=== PATIENT | male | born 1950 | race Caucasian/White ===

== ENCOUNTER 2022-10-24 07:36 | Inpatient (IN) ==
--- NOTE | 2022-09-17 14:57 | PAT Medication Instructions ---
Medication Instructions Date of Service September 17, 2022 Home Medications allopurinol 300 mg tablet 300 mg PO DAILY losartan 50 mg tablet 50 mg PO DAILY metformin 500 mg tablet 1,000 mg PO QAM DO NOT take the morning of surgery losartan 50 mg tablet 50 mg PO DAILY metformin 500 mg tablet 1,000 mg PO QAM Take morning of surgery With a small sip of water, OTHERWISE NOTHING TO EAT OR DRINK AFTER MIDNIGHT: allopurinol 300 mg tablet 300 mg PO DAILY Other Notes If you have any questions please call us at [phone] or [phone] or [phone] or [phone]
--- NOTE | 2022-09-19 11:58 | Anesthesiology Consultation ---
Date of Service September 19, 2022 Assessment & Plan (1) Encounter for pre-operative examination: - COVID screening: Per assessment on 09/19: No known COVID-19 positive contacts or current COVID-19 related symptoms. Travel screen negative. Patient vaccinated. At surgeon discretion if preop Covid testing being done. - Check BSG AM DOS Chart Review Chart Review: Acceptable Risk for Surgery and Patient seen in Pre Admission Testing Teaching & Discussion Pre-Anesthesia Teaching/Discussion Notes: Instructed NPO after midnight before surgery,except medications with 15 cc of water. Medication instructions provided according to the PAT guidelines. History Surgery Operation Date: 10/24/22 10:05 Proposed Procedures p L3-L5 Decompression and Fusion, spinal Cord Monitoring - Clyde Torres, Height/Weight Height: 6 ft Weight: 104.7 kg Allergies Allergy/AdvReac Type Severity Reaction Status Date / Time cinnamon Allergy Severe Anaphylaxis Verified 09/17/22 13:18 pumpkin Allergy Severe Anaphylaxis Verified 09/17/22 13:18 Penicillins Allergy Intermediate Hives (as Verified 09/18/22 11:50 child) Medications Home Medications Medication Instructions Recorded Confirmed Last Taken allopurinol 300 mg tablet 300 mg PO DAILY 09/17/22 09/17/22 Unknown losartan 50 mg tablet 50 mg PO DAILY 09/17/22 09/17/22 Unknown metformin 500 mg tablet 1,000 mg PO QAM 09/17/22 09/17/22 Unknown Past Medical History Medical History Arthritis Diabetes mellitus, type 2 Hx of gout Hypertension Sleep apnea No device/non-compliant Spinal stenosis Exercise / Class Metabolic Activity III < 4 Walking/Shop/Light housework Past Family History Family History Other No family history of adverse response to anesthesia Past Surgical History Surgical History H/O metal removed from eye History of colonoscopy History of removal of skin mole BENIGN (FROM BACK) History of tooth extraction Past Anesthesia History No Hx of Anesthesia Complications and No Family Hx of Anesthesia Complications History of PONV No Hx of PONV and No Hx of Motion Sickness Social History tobacco type: cigarettes and cigars Do You Dip or Chew Tobacco: No (Quit years ago) Smoking End Date: Quit cigarettes years ago, occasional social cigar Hx Alcohol Use: Yes Alcohol type: beer, wine and hard liquor alcohol intake frequency: a few times a month substance use type: does not use Review of Systems Patient denies chest pain, shortness of breath, fever, chills, cough, wheezing, palpitations. Physical Exam Vital Signs VITALS BP 151/76 P 62 TEMP 98.8 SP02 97%RA RESP 18 PHYSICAL Full cervical extension range of motion. Full TMJ range of motion. TMD 3 finger breaths Mallampati Score 3 Dentition: full upper/lower dentures Lungs: clear throughout to auscultation Cardiac: regular rate and rhythm, no murmurs noted Spine: normal Carotid arteries: negative bruit Extremities: no edema Lab Results Anesthesia Preop Results Results Anesthesia Widget: WBC 5.09 K/ul (4.8-10.8) 09/19/22 Hgb 12.2 g/dl (14.0-18.0) L 09/19/22 Hct 36.0 % (40.1-51.0) L 09/19/22 Plt 152 K/uL (130-400) 09/19/22 Na 137 mmol/L (136-145) 09/19/22 K 3.8 mmol/L (3.5-5.1) 09/19/22 Cl 103 mmol/L (98-107) 09/19/22 CO2 29 mmol/L (21-32) 09/19/22 BUN 20 mg/dl (6-23) 09/19/22 Creat 0.71 mg/dl (0.6-1.4) 09/19/22 Glucose Level 151 mg/dl (70-99(Fasting)) H 09/19/22 PT 10.5 Seconds (9.0-12.0) 09/19/22 PTT 27.5 Seconds (21.0-31.0) 09/19/22 INR 1.0 (0.9-1.1) 09/19/22 HA1c 6.2 % (4.5-5.6) H 09/19/22 Urine Color Yellow 09/19/22 Urine Appearance Clear (Clear) 09/19/22 Urine pH 6.5 (4.5-7.5) 09/19/22 Urine Specific Larue 1.013 (1.000-1.030) 09/19/22 Urine Protein Negative (Negative) 09/19/22 Urine Glucose (UA) Negative (Negative) 09/19/22 Urine Ketones Negative (Negative) 09/19/22 Urine Blood Negative (Negative) 09/19/22 Urine Nitrite Negative (Negative) 09/19/22 Urine Bilirubin Negative (Negative) 09/19/22 Urine Urobilinogen Negative (Negative) 09/19/22 Urine Leukocyte Esterase Negative (Negative) 09/19/22 Blood Type A Positive 09/19/22 Antibody Screen NEGATIVE 09/19/22 Testing Electrocardiogram Date: 09/19/22 SB at 55bpm. Chest X-Ray Date: 09/19/22 Findings: + NAD COVID-19 Risk Screen Screening Information COVID-19 Screen Date: 09/19/22 Exposure 21 Days Family/Household +COVID Last 21 Days: No Exposure 10 Days Any COVID Exposure Last 10 Days: No Symptoms Last 10 Days Experienced COVID Sx Last 10 Days: No + COVID 0-90 Days COVID + in Last 0-90 Days: No
[~2022-10-24 07:36] MED LIST: ACETAMINOPHEN 500 MG TAB PO SCH; CeleBREX 200 MG CAP PO SCH; GABAPENTIN 300 MG CAP PO SCH; LR 15ML/HR IV SCH; ceFAZolin 2000MG 2,000 MG/15 ML SYR IV SCH
[2022-10-24] MEDS ORDERED: NALOXONE HCL 0.4 MG/1 ML VIAL/CARP IV PRN ×2 (09:19→14:47)
[2022-10-24] MEDS ORDERED: ONDANSETRON INJ 2 MG/ML 2 ML VIAL IV PRN ×2 (09:19→14:47)
[2022-10-24] MEDS ORDERED: PROMETHAZINE HCL 12.5 MG in SODIUM CHLORIDE 0.9% 50 ML IV PRN ×2 (09:19→14:47)
[2022-10-24] MEDS ORDERED: ePHEDrine sulfate 50 MG/ML AMP IV PRN (09:19)
[2022-10-24] MEDS ORDERED: HYDROmorphone INJ 1 MG/ML SYRINGE IV PRN ×2 (09:19→14:47)
[2022-10-24] MEDS ORDERED: LABETALOL HCL IV 5 MG/ML 20ML IV PRN (09:19)
[2022-10-24] MEDS ORDERED: ATROPINE SULFATE 0.1 MG/ML 10ML SYR IV PRN (09:19)
[2022-10-24] MEDS ORDERED: FLUMAZENIL 0.1 MG/1 ML 10 ML VIAL IV PRN (09:19)
--- NOTE | 2022-10-24 09:32 | History & Physical Bridge Note ---
Date of Service October 24, 2022 History & Physical Bridge Note I have examined the patient, reviewed the History & Physical and in the interval since the performance of the History & Physical I have noted the following changes of clinical significance: no changes noted
--- NOTE | 2022-10-24 09:34 | History & Physical Report ---
Date of Service October 24, 2022 Assessment & Plan (1) Neurogenic claudication due to lumbar spinal stenosis: Plan: L L3-L5 decompression and fusion History of Present Illness Chief Complaint: Back and bilateral leg pain Primary Care Provider: DARVIN Patiño This is a 72-year-old male who presents with chronic persistent back and bilateral leg pain. Failing extensive course of nonoperative care is here for surgical intervention. Allergies Allergy/AdvReac Type Severity Reaction Status Date / Time cinnamon Allergy Severe Anaphylaxis Verified 10/24/22 08:03 pumpkin Allergy Severe Anaphylaxis Verified 10/24/22 08:03 Penicillins Allergy Intermediate Hives (as Verified 10/24/22 08:03 child) Home Medications Medication Instructions Recorded Confirmed Type allopurinol 300 mg tablet 300 mg PO DAILY 09/17/22 10/24/22 History losartan 50 mg tablet 50 mg PO DAILY 09/17/22 10/24/22 History metformin 500 mg tablet 1,000 mg PO QAM 09/17/22 10/24/22 History Past Med/Surg History Medical History Arthritis Diabetes mellitus, type 2 Hx of gout Hypertension Sleep apnea No device/non-compliant Spinal stenosis Surgical History H/O metal removed from eye History of colonoscopy History of removal of skin mole BENIGN (FROM BACK) History of tooth extraction Family History Other No family history of adverse response to anesthesia Social History Smoking Status: Former smoker Cigarettes Per Day: WILL STILL SMOKE A CIGAR WHEN DRINKING WITH FRIENDS; Smoking End Date: Quit cigarettes years ago, occasional social cigar; Second Hand Exposure: Yes ( A CHILD); Do You Dip or Chew Tobacco: No (Quit years ago); Hx Alcohol Use: Yes Alcohol type: beer, wine and hard liquor Preferred Language: Bolivian Project Control Analyst Required: No Beliefs That Will Affect Care: Anglican Anglican Beliefs: JEHOVAH'S WITNESS Current Living Situation: Spouse Feels Safe at Home: Yes Safety Concerns: Feels Safe At This Time Assistive Devices: Cane, Denture - Upper, Denture - Lower and Glasses Assistive Devices Comment: READING GLASSES Physical Exam Physical Exam: Patient is alert and oriented Heart regular rhythm Lungs clear Results & Data Results & Data ([place]) Vital Signs (Past 12 Hours) Vital Signs Temp Pulse Resp BP Pulse Ox O2 Del Method 10/24/22 08:13 37.1 C 56 L 20 199/96 H 98 Room Air
[2022-10-24] MEDS ORDERED: BUPIVACAINE/EPINEPHRINE 0.25% 1:200,000 30 ML VIAL ONE ×2 (09:43→10:05)
[2022-10-24] MEDS ORDERED: ceFAZolin 330 MG/ML 1 GM VIAL ONE (09:43)
[2022-10-24] MEDS ORDERED: CLINDAMYCIN/D5W 900 MG/50 ML BAG IV ONE (09:44)
[2022-10-24] MEDS ORDERED: CLINDAMYCIN 900 MG/D5W 50 ML BAG IV ONE (09:49)
[2022-10-24] MEDS ORDERED: ONDANSETRON INJ 2 MG/ML 2 ML VIAL ONE (09:52)
[2022-10-24] MEDS ORDERED: NEOSTIGMINE METHYLSULFATE 1 MG/ML 10ML VIAL ONE (09:52)
[2022-10-24] MEDS ORDERED: PROPOFOL IV EMULSION 10 MG/ML 20 ML VIAL IV ONE (09:52)
[2022-10-24] MEDS ORDERED: GLYCOPYRROLATE 0.2 MG/ML VIAL ONE (09:52)
[2022-10-24] MEDS ORDERED: fentaNYL citrate 100 MCG/2 ML VIAL ONE (09:52)
[2022-10-24] MEDS ORDERED: ROCURONIUM BROMIDE 10 MG/ML 5 ML VIAL IV ONE ×4 (09:52→11:51)
[2022-10-24] MEDS ORDERED: HYDROmorphone INJ 2 MG/ML SYR/VIAL ONE (09:53)
[2022-10-24] MEDS ORDERED: MIDAZOLAM HCL 1 MG/ML 2ML VIAL ONE (09:53)
[2022-10-24] MEDS ORDERED: FLOSEAL HEMOSTATIC MATRIX 10ML TOP ONE (10:53)
[2022-10-24] MEDS ORDERED: ALBUMIN HUMAN 5% 12.5 GM/250 ML VIAL IV ONE (11:59)
--- NOTE | 2022-10-24 12:09 | Operative Report ---
Post Operative Report Pre & Post Diagnosis Operation Date: 10/24/22 09:35 Pre-Op Diagnosis: Spinal Stenosis, Lumbar Region with Neurogenic Claudication Post-Op Diagnosis: Spinal Stenosis, Lumbar Region with Neurogenic Claudication I identified the patient and participated in the time-out.: Yes Procedure Operation Date: 10/24/22 09:35 Actual Procedures #1 lumbar decompression bilateral medial facetectomies and foraminotomies L2-L3, L3-L4 and L4-L5. #2 posterior spinal fusion L3-L4 L4-L5. #3 placement posterior instrumentation L3-L5. #4 interbody fusion L3-L4 L4-L5. #5 placement of Spira 15 x 26 mm cage at L3-L4 and L4-L5. #6 placement locally harvested morselized autograft in the posterior gutters. #7 placement of I factor combined with V test interbody space and posterior lateral gutters. Surgeon Clyde Torres, DO Psych Tech Asha Mari Estimated Blood Loss 700 Findings See Below The patient is 6 foot tall weighing over 104 kg with a BMI in excess of 31. Patient's body habitus combined with an EBL of over 750 cc created significant technical difficulty and at least 50% increased operative time. Specimens None Indications This is a 72-year-old male who presents above-mentioned diagnosis after failed course of nonoperative care is here for surgical invention. Description of Procedure Patient was met with identified informed consent obtained. Patient was then taken to the operative suite underwent a patient placed in a prone position on the Bruno table top Ranulfo frame. All bony prominences well-padded eyes inspected to ensure no external pressure placed upon them. This point the lumbar spine was prepped and draped in normal sterile fashion. Sharp dissection with the assistance of Bovie cautery was performed down to and exposing the lamina and transverse processes of L3-L4-L5 bilaterally. From caudal to cephalad fashion complete laminectomy of L4 L3 impression laminectomy L2 was performed including bilateral medial facetectomies and foraminotomies addressing severe spinal stenosis. Pedicle screws were then placed in L3 L4-5 bilaterally with assistance of fluoroscopy and the properly sized patricia placed. By way of a transforaminal approach on the left at L4-L5 a discectomy was performed endplates curetted to subcortically bone and a 15 x 26 mm spiral cage with I factor tapped in position. Then proceeded to L3-L4 and again by way of a transfemoral approach and left pleat discectomy performed endplates curetted to subcortical bleeding bone and a 15 x 26 mm spiral cage filled with I factor tapped in position. Rods were then locked in final position bilaterally. The transverse processes of L3-L4-L5 burred to subcortically bone. I factor combined with V toss and locally harvested morselized autograft was placed in the posterior gutters. 15 round DEEDEE drain inserted. The incision was then closed with 1 Vicryl the fascia 2-0 Vicryl subcutaneously and 4 Monocryl for final skin closure. Steri-Strip sterile dressings placed. Patient waken taken to PACU in stable condition. Please note spinal cord monitoring was utilized at the procedure no changes noted. Lastly Asha Mari was present at the entire surgeon while the patient positioning complex portions of the surgery and final skin closure. I attest to the content of the Intraoperative Record and any orders documented therein. Any exceptions are noted below.
[2022-10-24 12:22] LABS: iSTAT Creatinine 0.7 mg/dl (0.6-1.3); iSTAT Hemoglobin 10.5 g/dl (14.0-18.0); iSTAT Ionized Calcium 1.19 mmol/l (1.12-1.32); iSTAT Potassium 4.8 mmol/L (3.3-5.0)
[2022-10-24] MEDS: fentaNYL citrate 100 MCG/2 ML VIAL IV PRN ×4 (12:34→13:50)
--- NOTE | 2022-10-24 12:44 | Fluoroscopy Report ---
INTRAOPERATIVE RADIOGRAPHS CLINICAL HISTORY: L3-L5 spinal fusion. Fluoroscopy time: 27 seconds. FINDINGS: 2 spot fluoroscopic views of the lumbar spine are presented. There has been discectomy at L 3-L4 and L4-L5 with laminectomy and posterior fusion at L3-L5. Interpedicular screws are in place. Th e orthopedic hardware appears intact. IMPRESSION: Intraoperative images from lumbar spinal fusion surgery as above. Electronically signed by: Lyle Gamez M.D. 10/24/2022 12:43 PM
--- NOTE | 2022-10-24 13:32 | Anesthesiology Progress Note ---
Date of Service October 24, 2022 Anesthesia Post Procedure Vital Signs Vital Signs: Temp Pulse Pulse Resp BP Pulse Ox O2 Del Method 10/24/22 13:25 37 C 61 12 130/71 92 Oxymask 10/24/22 13:15 37 C 61 12 130/71 92 Oxymask 10/24/22 13:05 73 13 133/69 97 Oxymask 10/24/22 12:55 64 12 132/64 97 Oxymask 10/24/22 12:45 66 13 133/73 93 Oxymask 10/24/22 12:35 72 11 L 133/73 98 Oxymask 10/24/22 12:25 36.5 C 85 11 L 153/74 H 99 Oxymask 10/24/22 08:13 37.1 C 56 L 20 199/96 H 98 Room Air O2 Flow Rate 10/24/22 13:25 2 10/24/22 13:15 2 10/24/22 13:05 2 10/24/22 12:55 5 10/24/22 12:45 5 10/24/22 12:35 7 10/24/22 12:25 7 10/24/22 08:13 Pain Intensity Right Lower Back: Pain Intensity: 5 Transfer of Care Handoff Completed per policy Notes Mental Status: alert / awake / arousable Patient Amnestic to Procedure: Yes Nausea / Vomiting: adequately controlled Pain: adequately controlled Airway Patency, RR, SpO2: stable & adequate BP & HR: stable & adequate Hydration State: stable & adequate Anesthetic Complications: no major complications apparent
[2022-10-24 13:33] LABS: Hematocrit (blood only) 32.4 % (40.1-51.0); Hemoglobin 10.9 g/dl (14.0-18.0)
[2022-10-24] MEDS ORDERED: ACETAMINOPHEN 1,000 MG/100 ML VIAL IV PRN (14:47)
[2022-10-24] MEDS ORDERED: DO NOT ADMINISTER PNEUMOCOCCAL VACCINE PRN (14:47)
[2022-10-24] MEDS ORDERED: LORazepam 2 MG/1 ML VIAL IV PRN (14:47)
[2022-10-24] MEDS ORDERED: hydrOXYzine HCl 25 MG TAB PO PRN (14:47)
[2022-10-24] MEDS ORDERED: LORazepam 0.5 MG TAB PO PRN (14:47)
[2022-10-24] MEDS ORDERED: DO NOT ADMINISTER FLU VACCINE PRN (14:47)
[2022-10-24] MEDS ORDERED: PHARMACY GLYCEMIC MGMT CONSULT PRN (14:47)
[2022-10-24] MEDS ORDERED: METOCLOPRAMIDE HCL INJ 5 MG/ML 2 ML VIAL IV PRN (14:47)
[2022-10-24] MEDS ORDERED: ONDANSETRON 4 MG OD TAB PO PRN (14:47)
[2022-10-24] MEDS ORDERED: MAGNESIUM HYDROXIDE SUSP 30 ML UDC PO PRN (14:47)
[2022-10-24] MEDS ORDERED: SOD PHOSPHATE/SOD BIPHOSPHATE ENEMA 132 ML BTL PR PRN (14:47)
[2022-10-24] MEDS ORDERED: ALUMINUM/MAGNESIUM SUSP 30 ML UDC PO PRN (14:47)
[2022-10-24] MEDS ORDERED: traMADol HCL 50 MG TABLET PO PRN (14:47)
[2022-10-24] MEDS ORDERED: bisacodyL 10 MG SUPP PR PRN (14:47)
[2022-10-24] MEDS ORDERED: FAMOTIDINE 20 MG TAB PO PRN (14:47)
[2022-10-24] MEDS ORDERED: diphenhydrAMINE Capsule 25 MG CAP PO PRN (14:47)
[2022-10-24] MEDS ORDERED: CARBOHYDRATES FOR HYPOGLYCEMIA PO PRN (15:15)
[2022-10-24] MEDS ORDERED: DEXTROSE 50% 50 ML SYRINGE IV PRN (15:15)
[2022-10-24] MEDS ORDERED: GLUCOSE 10 TAB/TUBE PO PRN (15:15)
[2022-10-24] MEDS ORDERED: GLUCAGON FOR INJ 1 MG VIAL IM PRN (15:15)
[2022-10-24] MEDS ORDERED: GLUCOSE 40% GEL 15 GM TUBE PO PRN (15:15)
[2022-10-24] MEDS: SODIUM CHLORIDE 0.9% 1000ML 1,000 ML IV SCH ×2 (15:33→21:52)
--- NOTE | 2022-10-24 17:25 | Consultation ---
Date of Consultation October 24, 2022 Assessment & Plan (1) Neurogenic claudication due to lumbar spinal stenosis: (2) Status post lumbar surgery: Post op day# 0 S/P L2-L5 decompression and fusion by Dr Torres EBErnie#[id number] pain management per ortho wound management per ortho PT/OT as appropriate DVT prophylaxis per ortho incentive spirometry monitor H&H for acute blood loss anemia; Pre-op Hgb: 12, today postop Hgb: 10.9 (3) Diabetes mellitus, type 2: A1c: 6.2 on 09/19/2022 Hold home metformin NovoLog sliding scale per protocol (4) Hypertension: Stable Continue losartan (5) Hx of gout: Continue allopurinol (6) Sleep apnea: Does not use CPAP at home DVT Prophylaxis SCDS Disposition per primary service Follows with Trino BOSTON in [place], [place] for routine care Pt was seen and care coordinated with Dr Parisi. See addendum Thank you for this consultation. We will follow the patient with you during their hospital stay. You can reach a [facility] of [facility]05 via [facility] Supervising Physician Co-Signing Physician Notes I have seen and examined the patient and have discussed the case with the provider above. I agree with the assessment and plan as stated. 72 yo M in NAD post operatively s/p lumbar surgery. My physical exam is as noted above. Cont plan as above. Thank you for this consultation. DO Isak History of Present Illness Requesting Physician: Dr Torres Reason for Consultation: Post op medical management Attending Physician: Clyde Torres DO History of Present Illness Patient is 72 y/o M with PMH DM II, HTN, gout seen in medical consultation s/p L2-L5 decompression and fusion today by Dr. Torres. Postop patient reports some mild low back discomfort. Has Ureña catheter in place. Last BM reported yesterday. Denies fever/chills, diaphoresis, N/V/D/C, PORTILLO, dizziness, neck pain, CP, SOB, palpitations, cough, sore throat, rhinorrhea, abdominal pain, paresthesias, extremity weakness, extremity edema, rashes, urinary symptoms. Allergies Allergy/AdvReac Type Severity Reaction Status Date / Time cinnamon Allergy Severe Anaphylaxis Verified 10/24/22 08:03 pumpkin Allergy Severe Anaphylaxis Verified 10/24/22 08:03 Penicillins Allergy Intermediate Hives (as Verified 10/24/22 08:03 child) Home Medications Medication Instructions Recorded Confirmed Type allopurinol 300 mg tablet 300 mg PO DAILY 09/17/22 10/24/22 History losartan 50 mg tablet 50 mg PO DAILY 09/17/22 10/24/22 History metformin 500 mg tablet 1,000 mg PO QAM 09/17/22 10/24/22 History oxycodone 5 mg tablet 5 mg PO Q6H PRN pain, severe #30 10/25/22 Rx tabs tramadol 50 mg tablet 50 mg PO Q6H PRN pain, moderate 10/25/22 Rx #30 tabs Patient History Medical History (Updated 10/24/22 @ 22:24 by Bertha Bell PA-C) Arthritis Diabetes mellitus, type 2 Hx of gout Hypertension Sleep apnea No device/non-compliant Spinal stenosis Surgical History (Updated 10/24/22 @ 22:24 by Bertha Bell PA-C) H/O metal removed from eye History of colonoscopy History of removal of skin mole BENIGN (FROM BACK) History of tooth extraction Family History Other No family history of adverse response to anesthesia Social History Smoking Status: Former smoker Cigarettes Per Day: WILL STILL SMOKE A CIGAR WHEN DRINKING WITH FRIENDS; Smoking End Date: Quit cigarettes years ago, occasional social cigar; Second Hand Exposure: Yes ( A CHILD); Do You Dip or Chew Tobacco: No (Quit years ago); Hx Alcohol Use: Yes Alcohol type: beer, wine and hard liquor Preferred Language: Vietnamese Communication Ability: Effective Rail Loader Required: No Beliefs That Will Affect Care: Taoist Taoist Beliefs: CHRISTIANITY Current Living Situation: Spouse Feels Safe at Home: Yes Safety Concerns: Feels Safe At This Time Assistive Devices: CPAP and Walker Assistive Devices Comment: READING GLASSES Review of Systems Review of Systems: All systems reviewed & are unremarkable except as noted in HPI & below Physical Exam Physical Exam: General: no distress, WDWN Head: normocephalic, atraumatic Eyes: conjunctiva non-injected, anicteric ENT: normal inspection external ears, nose, mucous membranes moist Neck: supple, trachea midline Lungs: clear, no respiratory distress, no wheezing/rhonchi/rales CV: RRR, no murmur, no pretibial edema Abd: normal BS, soft, non-tender Back: Surgical dressing in place: DEEDEE drain with serosanguineous drainage, bilateral pedal pushes and pulls intact, bilateral dorsalis pedis pulses intact, sensation to light touch intact Ext: no cyanosis, no calf tenderness Neuro: A&O x 3, no focal deficits noted, normal affect Skin: warm, dry Results & Data ([facility]) Vital Signs (Past 12 Hours) Vital Signs Temp Pulse Pulse Resp BP Pulse Ox O2 Del Method 10/24/22 16:30 36.7 C 74 16 135/75 96 Room Air 10/24/22 15:35 36.6 C 63 16 126/69 95 Room Air 10/24/22 15:05 36.6 C 75 16 131/76 96 Room Air 10/24/22 14:35 36.7 C 70 16 147/76 H 96 Room Air 10/24/22 14:15 75 16 130/73 97 Nasal Cannula 10/24/22 13:25 37 C 61 12 130/71 92 Oxymask 10/24/22 13:15 37 C 61 12 130/71 92 Oxymask 10/24/22 13:05 73 13 133/69 97 Oxymask 10/24/22 12:55 64 12 132/64 97 Oxymask 10/24/22 12:45 66 13 133/73 93 Oxymask 10/24/22 12:35 72 11 L 133/73 98 Oxymask 10/24/22 12:25 36.5 C 85 11 L 153/74 H 99 Oxymask 10/24/22 08:13 37.1 C 56 L 20 199/96 H 98 Room Air O2 Flow Rate 10/24/22 16:30 10/24/22 15:35 10/24/22 15:05 10/24/22 14:35 10/24/22 14:15 2 10/24/22 13:25 2 10/24/22 13:15 2 10/24/22 13:05 2 10/24/22 12:55 5 10/24/22 12:45 5 10/24/22 12:35 7 10/24/22 12:25 7 01/11/23 08:13 Laboratory Results Short CBC 10/24/22 Range/Units 13:03 Hgb 10.9 L (14.0-18.0) g/dl Hct 32.4 L (40.1-51.0) %
[2022-10-24] MEDS: CLINDAMYCIN/D5W 600 MG/50 ML BAG IV SCH (17:33)
[2022-10-24] MEDS: INSULIN ASPART PER UNIT SC SCH ×2 (17:42→20:57)
[2022-10-24] MEDS: DOCUSATE SODIUM/SENNA 50/8.6MG TAB PO SCH (20:58)
[2022-10-24] MEDS: ACETAMINOPHEN 500 MG TAB PO PRN (21:02)
[2022-10-25] MEDS: CLINDAMYCIN/D5W 600 MG/50 ML BAG IV SCH (01:14)
[2022-10-25] MEDS: SODIUM CHLORIDE 0.9% 1000ML 1,000 ML IV SCH (05:28)
[2022-10-25] MEDS: POLYETHYLENE (MIRALAX) 17 GM PACK PO SCH ×4 (05:33→21:14)
[2022-10-25 07:38] LABS: Hematocrit (blood only) 28.5 % (40.1-51.0); Hemoglobin 9.5 g/dl (14.0-18.0); Immature Granulocytes # (auto) 0.03 K/uL (0.00-0.02); Immature Granulocytes % (auto) 0.4 %; Lymphocytes # (auto) 1.14 K/uL (1.2-3.4); Lymphocytes % (auto) 15.7 %; Mean Corpuscular Hemoglobin 32.2 pg (25.0-34.0); Mean Corpuscular Hgb Conc 33.3 g/dL (32.0-36.0); Mean Corpuscular Volume 96.6 fL (80.0-100.0); Mean Platelet Volume 10.8 fL (9.4-12.4); Monocytes # (auto) 0.61 K/uL (0.24-0.82); Monocytes % (auto) 8.4 %; Neutrophils % (auto) 75.5 %; Platelet Count 145 K/uL (130-400); RDW Coefficient of Variation 12.6 % (11.5-14.5); RDW Standard Deviation 44.3 fL (36.4-46.3); Red Blood Count 2.95 M/uL (4.63-6.08); White Blood Count 7.28 K/ul (4.8-10.8)
[2022-10-25 08:52] LABS: BUN Creatinine Ratio 15.9 (10-20); Calcium 8.7 mg/dl (8.5-10.1); Creatinine Clr Calc Pharmacy 103.4 ml/min; Est GFR (African American) 103.1 ml/min; Potassium 3.7 mmol/L (3.5-5.1)
[2022-10-25] MEDS: LOSARTAN POTASSIUM 50 MG TAB PO SCH (08:57)
[2022-10-25] MEDS: INSULIN ASPART PER UNIT SC SCH ×4 (08:57→21:14)
[2022-10-25] MEDS: allopurinoL 300 MG TAB PO SCH (08:57)
--- NOTE | 2022-10-25 11:07 | Orthopedic Progress Note ---
Date of Service October 25, 2022 Assessment & Plan (1) Neurogenic claudication due to lumbar spinal stenosis: Plan: This time initiate physical therapy monitor his DEEDEE operatively discharge home tomorrow the next day. Admission and Anticipated Discharge Date Admission Date: October 24, 2022 Subjective Back pain controlled leg symptoms markedly improved Physical Exam Physical Exam: Exam patient is seen in bed. She distracted testing. Appears comfortable. Results & Data ([facility]) Vital Signs (Past 12 Hours) Vital Signs Temp Pulse Pulse Resp BP Pulse Ox O2 Del Method 10/25/22 11:05 37 C 61 16 153/71 H 96 Room Air 10/25/22 07:25 36.7 C 60 18 156/77 H 95 Room Air 10/25/22 06:16 36.7 C 59 L 18 167/79 H 97 Room Air 10/25/22 01:33 36.7 C 63 18 123/66 95 Room Air
[2022-10-25] MEDS: ACETAMINOPHEN 500 MG TAB PO PRN (11:35)
--- NOTE | 2022-10-25 13:44 | Pharmacy Report ---
Pharmacy Glycemic Short Note 2 - Date of Service October 25, 2022 - Glycemic Short BSG Results (Last 24 hours): 10/24/22 10/24/22 10/25/22 17:04 20:45 07:16 Glucose 156 H POC Glucose 164 H 187 H 10/25/22 10/25/22 08:16 12:28 Glucose POC Glucose 164 H 113 H OUTPATIENT ANTIDIABETIC REGIMEN: * metformin 1 gm daily * A1c 6.2% ASSESSMENT: * 72 year old s/p spinal procedure, POD 1 - pharmacy consulted for glycemic management. Patient started on novolog insulin last evening, continues on novolog this morning and BSGs stable * Provider ordering dex 6 mg iv daily starting tomorrow AM - therefore anticipate BSGs to rise tomorrow. Will consider tightening novolog tomorrow AM with steroids and also adding on small dose of NPH insulin to cover steroid effects PLAN FOR INPATIENT GLYCEMIC CONTROL: * Hold outpatient oral diabetes medications * Basal insulin * hold today * Bolus insulin * NovoLog per scale ACHS or Q6hrs while NPO * Goal Range: Low 110 mg/dL - High 140 mg/dL * Correction Factor: 30 mg/dL/unit * Nutritional / Prandial insulin per carb ratio of 1 unit per 10 grams CHO consumed
[2022-10-25] MEDS: oxyCODONE HCL IR 5 MG TAB (IMMEDIATE RELEASE) PO PRN ×2 (18:15→22:48)
[2022-10-25] MEDS: DOCUSATE SODIUM/SENNA 50/8.6MG TAB PO SCH (19:49)
--- NOTE | 2022-10-25 21:57 | Hospitalist Progress Note ---
Date of Service October 25, 2022 Assessment & Plan (1) Neurogenic claudication due to lumbar spinal stenosis: (2) Status post lumbar surgery: Plan: Post op day# 1 S/P L2-L5 decompression and fusion by Dr Torres No postop complication Contune pain management per ortho wound management per ortho PT/OT as appropriate DVT prophylaxis per ortho incentive spirometry Monitor H&H (3) Diabetes mellitus, type 2: Plan: A1c: 6.2 on 09/19/2022 Continue to hold home metformin NovoLog sliding scale per protocol (4) Hypertension: Plan: Stable Continue losartan (5) Hx of gout: Plan: Continue allopurinol (6) Sleep apnea: Plan: Does not use CPAP at home DVT Prophylaxis SCDS Disposition per primary service Follows with Trino BOSTON in [place], [place] for routine care Thank you for this consultation. We will follow the patient with you during their hospital stay. You can reach a [facility] of [facility]05 via [employer] Admission and Anticipated Discharge Date Admission Date: October 24, 2022 Subjective Patient was seen and evaluated for postop follow-up Lying in bed with no acute distress Patient said pain is controlled She said she walked around with therapy today Denies any chest pain, palpitation, dizziness, shortness of breath. Review of Systems Review of Systems: All systems reviewed & are unremarkable except as noted in Subjective Physical Exam Physical Exam: General- No acute distress Head- atraumatic Eyes- PERRL, EOMI, ENT- oropharynx clear Neck- supple, no JVD Lungs- clear to auscultation Heart- regular rhythm; no murmur Abdomen- normal bowel sounds, soft, nontender Extremities- no calf tenderness Neuro- alert, oriented x 3; PERRL, EOMI; no facial palsy; no dysarthria Skin- warm & dry Results & Data Results & Data ([facility]) Vital Signs (Past 12 Hours) Vital Signs Temp Pulse Resp BP Pulse Ox O2 Del Method 10/25/22 14:47 37 C 61 16 114/67 95 Room Air 10/25/22 11:05 37 C 61 16 153/71 H 96 Room Air
[2022-10-26] MEDS: POLYETHYLENE (MIRALAX) 17 GM PACK PO SCH ×2 (05:25→12:53)
[2022-10-26] MEDS: HYDROmorphone INJ 0.5 MG/0.5 ML SYR IV PRN ×2 (05:28→05:29)
[2022-10-26] MEDS: allopurinoL 300 MG TAB PO SCH (08:57)
[2022-10-26] MEDS: LOSARTAN POTASSIUM 50 MG TAB PO SCH (08:57)
[2022-10-26] MEDS: INSULIN ASPART PER UNIT SC SCH ×2 (08:58→12:54)
[2022-10-26] MEDS ORDERED: dexAMETHasone 6 MG in SYRINGE 0 ML IV SCH (09:00)
[2022-10-26] MEDS ORDERED: NovoLIN-N (NPH) PER UNIT CHARGE SQ SCH (09:00)
--- NOTE | 2022-10-26 11:09 | Hospitalist Progress Note ---
Date of Service October 26, 2022 Assessment & Plan (1) Neurogenic claudication due to lumbar spinal stenosis: (2) Status post lumbar surgery: Plan: Post op day# 2 S/P L2-L5 decompression and fusion by Dr Torres No postop complication Continue pain management per ortho wound management per ortho PT/OT as appropriate DVT prophylaxis per ortho Continue incentive spirometry fall precaution (3) Diabetes mellitus, type 2: Plan: A1c: 6.2 on 09/19/2022 Continue to hold home metformin NovoLog sliding scale per protocol (4) Hypertension: Plan: Stable Continue losartan (5) Hx of gout: Plan: Continue allopurinol (6) Sleep apnea: Plan: Does not use CPAP at home DVT Prophylaxis SCDS Disposition per primary service Follows with Trino BOSTON in [place], [place] for routine care Thank you for this consultation. We will follow the patient with you during their hospital stay. You can reach a member [facility] via [employer] Admission and Anticipated Discharge Date Admission Date: October 24, 2022 Subjective Pt was seen and examined for postop follow up Siting in chair with no acute distress with family at bedside Pt said that he had so much pain last night He said that he felt dizzy last night after taking the narcotic Denies any chest pain, palpitation, dizziness and SOB Review of Systems Review of Systems: All systems reviewed & are unremarkable except as noted in Subjective Physical Exam Physical Exam: General- No acute distress Head- atraumatic Eyes- PERRL, EOMI, ENT- oropharynx clear Neck- supple, no JVD Lungs- clear to auscultation Heart- regular rhythm; no murmur Abdomen- normal bowel sounds, soft, nontender Extremities- no calf tenderness Neuro- alert, oriented x 3; PERRL, EOMI; no facial palsy; no dysarthria Skin- warm & dry Results & Data Results & Data ([facility]) Vital Signs (Past 12 Hours) Vital Signs Temp Pulse Resp BP Pulse Ox O2 Del Method O2 Flow Rate 10/26/22 10:51 36.7 C 78 14 130/58 L 96 Room Air 10/26/22 09:20 94 Room Air 10/26/22 07:30 Nasal Cannula 2 10/26/22 07:40 36.7 C 62 13 115/70 96 Room Air
--- NOTE | 2022-10-26 13:05 | Discharge Summary ---
Date of Service October 26, 2022 Admission HPI Per Admitting Provider This is a 72-year-old male who presents with chronic persistent back and bilateral leg pain. Failing extensive course of nonoperative care is here for surgical intervention. Principal Diagnosis Lumbar spinal stenosis with neurogenic claudication Discharge Data Allergies Allergy/AdvReac Type Severity Reaction Status Date / Time cinnamon Allergy Severe Anaphylaxis Verified 10/24/22 08:03 pumpkin Allergy Severe Anaphylaxis Verified 10/24/22 08:03 Penicillins Allergy Intermediate Hives (as Verified 10/24/22 08:03 child) Consultations 10/24/22 14:47 Consult Hospitalist Routine Procedures Performed Operation Date: 10/24/22 09:35 Actual Procedures p L3-L5 Decompression and Fusion with Spinal Cord Monitoring(Not Applicable) - Clyde Torres DO Ordered Studies 10/24/22 09:35 FL lumbar spine 2-3V Routine Hospital Course (1) Neurogenic claudication due to lumbar spinal stenosis: Patient with lumbar decompression fusion tolerated well second orthopedic for postoperative. Postop day 1 is up and ambulating progress postop day #2 pain well controlled. DEEDEE drain decreased probably. Subsequent discharge home. Discharge orders instructions from the chart for further review. Total Time Total Time Spent Total Time Spent (In Minutes): 20 minutes Discharge Plan Discharge Items Patient Disposition: Home - Self-Care Reason For Visit: POST OP Discharge Diagnosis: Lumbar spinal stenosis with neurogenic claudication Activity: As commented below Non-emergency contact: Primary Care Provider Call non-emergency contact if: you have any medication questions Follow-up/Referrals: Trino Khoury CRNP [Primary Care Provider] - Diet: Regular Addtl Attending Provider Instructions: ACTIVITY RECOMMENDATIONS: SELF CARE INSTRUCTIONS AFTER THORACIC/LUMBAR FUSIONS 1. You may walk to your tolerance. It is good exercise for your legs and back. Expect some back and intermittent leg aches and pains. 2. You may perform "counter-top" level activities (make a sandwich, thea with a project, etc.). 3. No bending or lifting of more than 10 pounds or back twisting of any nature (roll like a log when turning in bed). 4. You may ride in a car for 20-30 minutes at a time. No driving until after your first visit with your doctor. 5. Frequent changes of position and restricting sitting to 30 minutes at a time will help limit the amount of back spasms and stiffness you may experience. 6. You may discontinue the use of ambulatory aids (cane, crutches, etc.) once your strength and confidence allow. 7. You may wing commander the shower and let water strike your incision when you arrive home at least once daily. Do not take a tub bath, sit in a hot tub or go into a swimming pool until after your first recheck in the office. SPECIAL CARE INSTRUCTIONS: VERY IMPORTANT TO READ AND REVIEW A. Your surgical incision has been closed with a cosmetic suture under the skin that will dissolve in about 6 weeks. In 14 days, you can use a pair of clean scissors and cut the suture that is left outside of the skin at the ends of your incision. 1. The small skin tapes can be removed 7 days after surgery if they have not fallen off by that point. 2. You may keep the wound open to air as much as possible to promote healing after post-op day number 5 unless told otherwise by your doctor. 3. If you think the wound looks like it is becoming infected (redness or worsening drainage) and/or you are experiencing fever, chill or worsening back pain and muscle spasms, contact the office so that we may evaluate you as soon as possible. B. Complications are uncommon, but please contact us if you have any signs or symptoms of: 1. wound infection (fever higher than 102.5 degrees F, redness, separation of wound, drainage, or increasing pain from the incision) 2. blood clots in legs (pain, swelling, redness and warmth in legs) 3. urinary tract infection (fever higher than 102.5 degrees F, burning upon urination or increased frequency of urination) 4. nerve problems (inability to walk on your toes or heels, numbness, loss of bowel or bladder control) 5. any other symptoms that concern you C. Please call the office at if you have any concerns or questions about your operation or recovery. D. No smoking! Smoking drastically decreases the chance of a solid fusion. E. Do not take any anti-inflammatory medications (Indocin, Advil, Motrin, Aspirin, Naprosyn, etc.) as these may inhibit the chance of a solid fusion. Tylenol is okay to take for pain. MANAGING PAIN AFTER SPINAL SURGERY 1. Narcotic medication is intended for short-term use and will be provided for surgical pain. Surgical pain usually lasts for a period of 4-6 weeks. Narcotic medication includes Percocet, Vicodin, Darvocet, Tylenol #3 or Lortab. 2. Longer-term pain is more appropriately treated with non-narcotic medication such as Tylenol ES. 3. Muscle spasm is not appropriately treated with narcotics. Muscle relaxers such as Soma, Flexeril or Skelaxin can be used along with Tylenol ES. 4. Remember that we all live with some "aches and pains". This is not unusual or uncommon after an injury or as we get older. a. Back pain is expected and may include muscle spasms for 4 to 6 weeks after surgery. The pain should gradually improve. If the pain worsens for no apparent reason, please contact the office. b. Intermittent leg pain may also be experienced and should not be concerned about unless it worsens for no apparent reason. If so, please contact the office. 5. We will provide appropriate medication within the normal guidelines of their prescribed use. We will also be very cautious and aware of potential abuse and extended duration of patients' medication needs. a. Pain medications are for your comfort and to assist with sleep and rest so that the tissue can heal. They are not provided in order to return to normal activity and should not be used through the day. To do so or worsening pain at night can result from ongoing tissue damage and development of tolerance to the prescribed medicine. 6. Please allow 2-3 days to process refills. Prescriptions will not be mailed but must be picked up at the office. FOLLOW UP VISIT: Keep your scheduled follow-up appointment. Any questions, please call the office at . Pending Studies at Discharge: No Stand-Alone Forms: [facility], Sm[facility] Cessation Medications and DC Order Prescriptions: New tramadol 50 mg tablet 50 mg PO Q6H PRN (Reason: pain, moderate) Qty: 30 0RF oxycodone 5 mg tablet 5 mg PO Q6H PRN (Reason: pain, severe) Qty: 30 0RF Continued losartan 50 mg Tablet 50 mg PO DAILY metformin 500 mg Tablet 1,000 mg PO QAM allopurinol 300 mg Tablet 300 mg PO DAILY Discharge Orders: Discharge Order (Routine); Ordered 10/26/22 Ordered By: Clyde Torres Admission Data Admit Date/Time: 10/24/22 12:13 Attending Provider: Clyde Torres Admit Provider: Clyde Torres Primary Care Provider: Trino Khoury Other Providers: Linda Parisi ; Addie Sesay
[2022-10-26] MEDS: oxyCODONE HCL IR 5 MG TAB (IMMEDIATE RELEASE) PO PRN (14:05)
== END 2022-10-26 15:35 | disposition home or self-care (01) | DRG 455 ==
LOC: ASU 07:36 → 3W 12:13